=== PATIENT | female | born 2000 | race Caucasian/White ===

== ENCOUNTER 2018-06-02 09:06 | Outpatient (CLI) | payer BC ==
--- NOTE | 2018-06-02 11:56 | ULT ---
RIGHT UPPER QUADRANT ULTRASOUND: Date: 06/03/18 HISTORY: Right upper quadrant pain, nausea and vomiting. FINDINGS: The liver, pancreas, gallbladder, and right kidney appear normal. The common duct measures 2 mm in di ameter. No free fluid is seen in Morison's pouch. IMPRESSION: Normal exam. POS: OFF
== END 2018-06-02 09:07 | disposition home or self-care (01) ==
LOC: ULT 09:06
PROVIDERS: ATTEND Physician Assistant Medical
DX: R10.11 Right upper quadrant pain (principal); R11.2 Nausea with vomiting, unspecified
CPT/HCPCS: 76705